=== PATIENT | male | born 1945 | race Caucasian/White ===

== ENCOUNTER 2019-03-06 07:18 | Day surgery (SDC) | payer MEDICARE ==
[~2019-03-06] VITALS: Ht 185.4 cm; Wt 113.6 kg
[2019-03-06 08:35] VITALS: BP 143/87
== END 2019-03-06 16:51 | disposition home or self-care (01) ==
LOC: CACL 07:18
PROVIDERS: ATTEND Internal Medicine Cardiovascular Disease
DX: I25.10 Atherosclerotic heart disease of native coronary artery without angina pectoris (principal); I35.0 Nonrheumatic aortic (valve) stenosis; I10 Essential (primary) hypertension; E11.9 Type 2 diabetes mellitus without complications; E78.00 Pure hypercholesterolemia, unspecified; J44.9 Chronic obstructive pulmonary disease, unspecified; E66.9 Obesity, unspecified; F17.210 Nicotine dependence, cigarettes, uncomplicated; Z68.33 Body mass index [BMI] 33.0-33.9, adult; Z79.899 Other long term (current) drug therapy; Z88.8 Allergy status to other drugs, medicaments and biological substances; Z82.49 Family history of ischemic heart disease and other diseases of the circulatory system
CPT/HCPCS: 36415; 80053; 85025; 93308; 93321; 93325; 93454; 93571; 99156; 99157; C1769; C1887; C1894; J1200; J2250; J3010; Q9967; J0583

== ENCOUNTER 2019-03-13 11:04 | Outpatient (CLI) | payer MEDICARE | END 2019-03-13 23:59 | disposition home or self-care (01) | LOC: RAD 11:04 | PROVIDERS: ATTEND Internal Medicine Cardiovascular Disease | DX: I35.8 Other nonrheumatic aortic valve disorders (principal); I65.23 Occlusion and stenosis of bilateral carotid arteries; I25.10 Atherosclerotic heart disease of native coronary artery without angina pectoris; E11.9 Type 2 diabetes mellitus without complications; I10 Essential (primary) hypertension; E78.00 Pure hypercholesterolemia, unspecified; N28.1 Cyst of kidney, acquired; M47.894 Other spondylosis, thoracic region | CPT/HCPCS: 71275; 74174; 93880; 94060; 94726; 94729; Q9967 ==

== ENCOUNTER 2019-03-21 09:33 | Inpatient (IN) | payer MEDICARE ==
[~2019-03-21] VITALS: Ht 185.4 cm; Wt 116.2 kg
[~2019-03-21 09:33] MED LIST: ALBU90AE INH; AMLO-150 PO; ASCO10004 PO; CLOT45CR5 TP; CYAN100028 PO; DEXT30DR5 EACHEYE; DICL100G19 TP; DOCU-180 PO; EYE MEDICATION EACHEYE; GABA300C10 PO; GINK40CA5 PO; GLUC1CAP48 PO; HYDR-826 PO; LOVA40TA2 PO; METO25TA35 PO; NICO-487 TD; NYST1000 PO; OMEP-110 PO; OXYC5CAP2 PO; TRAZ-137 PO
[2019-03-21] MEDS ORDERED: SODIUM CHLORIDE 0.9% 1,000 ML IV ONE (09:56)
[2019-03-21] MEDS ORDERED: ONDANSETRON 2MG/ML, 2ML IVPush PRN (10:00)
[2019-03-21] MEDS ORDERED: CHLORHEXIDINE 15 ML UDC MM PRN (10:00)
[2019-03-21 10:03] VITALS: BP 134/65
[2019-03-21 10:25] LABS: BASOPHILS # (AUTO) 0.04 x10^3/uL (0-0.1); BASOPHILS % (AUTO) 1 % (0-1); EOSINOPHILS # (AUTO) 0.12 x10^3/uL (0-0.4); EOSINOPHILS % (AUTO) 2 % (1-7); LYMPHOCYTES # (AUTO) 1.73 x10^3/uL (1-3.4); LYMPHOCYTES % (AUTO) 24 % (22-44); MD NO; MEAN CORPUSCULAR HEMOGLOBIN 30.8 pg (27.5-34.5); MEAN CORPUSCULAR HGB CONC 33.4 g/dL (33.2-36.2); MEAN CORPUSCULAR VOLUME 92.4 fL (81-97); MEAN PLATELET VOLUME 7.8 fL (7.4-10.4); MONOCYTES # (AUTO) 0.49 x10^3/uL (0.2-0.8); MONOCYTES % (AUTO) 7 % (2-9); NEUTROPHILS % (AUTO) 68 % (42-75); PLATELET COUNT 249 x10^3/uL (130-400); RED BLOOD COUNT 5.01 x10^6/uL (4.38-5.82)
[2019-03-21 10:35] LABS: INTERNATIONAL NORMALIZED RATIO 1.02 (0.93-1.1); PROTHROMBIN TIME 10.7 Seconds (9.6-11.5)
[2019-03-21 10:36] LABS: ALANINE AMINOTRANSFERASE 26 U/L (12-78); ALBUMIN 3.7 g/dL (3.4-5.0); ANION GAP 5 mmol/L (5-15); CALCIUM 9.3 mg/dL (8.5-10.1); CHLORIDE 109 mmol/L (98-107); CREATININE 0.97 mg/dL (0.7-1.3)
[2019-03-21 10:40] LABS: ALKALINE PHOSPHATASE 88 U/L (45-117); BILIRUBIN,TOTAL 0.6 mg/dL (0.2-1.0); TOTAL PROTEIN 6.7 g/dL (6.4-8.2)
[2019-03-21] MEDS ORDERED: NICO4LOZ PO (11:18)
[2019-03-21] MEDS ORDERED: DULO60CA7 PO (11:18)
[2019-03-21] MEDS ORDERED: FLUT9.9S INH (11:18)
[2019-03-21] MEDS ORDERED: SUCCINYLCHOLINE 20 MG/ML, 10ML ONE (11:19)
[2019-03-21] MEDS ORDERED: CEFAZOLIN 1,000 MG ONE (11:19)
[2019-03-21] MEDS ORDERED: FENTANYL PF 250 MCG/5ML ONE (12:27)
[2019-03-21] MEDS ORDERED: HEPARIN 1,000 UNITS/ML, 10ML ONE (12:27)
[2019-03-21] MEDS ORDERED: ROCURONIUM 10MG/ML,5ML ONE (13:43)
[2019-03-21] MEDS ORDERED: PROTAMINE SULFATE 10 MG/ML, 25ML ONE (13:43)
[2019-03-21] MEDS ORDERED: PROPOFOL 10 MG/ML, 20ML ONE (13:43)
[2019-03-21] MEDS ORDERED: CLOPIDOGREL 300 MG TABLET PO ONE (14:00)
[2019-03-21] MEDS ORDERED: ALBUTEROL SULFATE 2.5 MG/3 ML NPPB PRN ×2 (14:00→17:00)
[2019-03-21] MEDS ORDERED: OXYcodone IR 5MG TABLET PO PRN (14:00)
[2019-03-21] MEDS ORDERED: ACETAMINOPHEN 325 MG TABLET PO PRN (14:00)
[2019-03-21] MEDS: NICOTINE POLACRILEX 4 MG PO SCH ×4 (17:03→23:19)
[2019-03-21 17:46] VITALS: BP 139/50
[2019-03-21 19:24] VITALS: BP 153/61
[2019-03-21] MEDS: METOPROLOL TARTRATE 25 MG TABLET PO SCH (20:06)
[2019-03-21] MEDS: GABAPENTIN 300 MG CAPSULE PO SCH (20:07)
[2019-03-21] MEDS: DICLOFENAC SODIUM TP SCH (20:07)
[2019-03-21] MEDS: HYDROcodone/APAP 5/325 TABLET PO PRN (20:11)
[2019-03-21] MEDS ORDERED: LOVASTATIN 40 MG TABLET PO SCH (21:00)
[2019-03-21] MEDS ORDERED: TRAZODONE 100MG TABLET PO SCH (21:00)
[2019-03-21] MEDS ORDERED: TEMPLATE NON-FORMULARY MED. (Gluc 2KCL/Chondr/Coll Hy/Hy Ac** (Glucosamine & Chondroitin C PO SCH (21:00)
[2019-03-22 01:04] VITALS: BP 142/74
[2019-03-22] MEDS: NICOTINE POLACRILEX 4 MG PO SCH ×5 (02:50→08:31)
[2019-03-22 05:20] LABS: MEAN CORPUSCULAR HEMOGLOBIN 31.8 pg (27.5-34.5); MEAN CORPUSCULAR HGB CONC 33.7 g/dL (33.2-36.2); MEAN CORPUSCULAR VOLUME 94.4 fL (81-97); MEAN PLATELET VOLUME 8.3 fL (7.4-10.4); PLATELET COUNT 242 x10^3/uL (130-400); RED BLOOD COUNT 4.63 x10^6/uL (4.38-5.82); RED CELL DISTRIBUTION WIDTH 14.2 % (9.4-14.8)
[2019-03-22 05:30] LABS: ANION GAP 8 mmol/L (5-15); CALCIUM 8.9 mg/dL (8.5-10.1); CHLORIDE 106 mmol/L (98-107)
[2019-03-22 05:54] LABS: BASOPHILS # (AUTO) 0.03 x10^3/uL (0-0.1); BASOPHILS % (AUTO) 0 % (0-1); EOSINOPHILS # (AUTO) 0.19 x10^3/uL (0-0.4); EOSINOPHILS % (AUTO) 1 % (1-7); LYMPHOCYTES # (AUTO) 1.32 x10^3/uL (1-3.4); LYMPHOCYTES % (AUTO) 9 % (22-44); MD SCAN; MONOCYTES # (AUTO) 0.77 x10^3/uL (0.2-0.8); MONOCYTES % (AUTO) 5 % (2-9); NEUTROPHILS # (AUTO) 11.85 x10^3/uL (1.8-6.8); NEUTROPHILS % (AUTO) 84 % (42-75)
[2019-03-22] MEDS: HYDROcodone/APAP 5/325 TABLET PO PRN ×2 (06:08→10:02)
[2019-03-22 07:20] VITALS: BP 128/87
[2019-03-22] MEDS ORDERED: CLOPIDOGREL 75 MG TABLET PO SCH (09:00)
[2019-03-22] MEDS ORDERED: ASPIRIN 81 MG TABLET EC PO SCH (09:00)
[2019-03-22] MEDS ORDERED: FLUTICASONE NASAL SPRAY 16GM NAS SCH (09:00)
[2019-03-22] MEDS ORDERED: GINKGO BILOBA 40 MG PO SCH (09:00)
[2019-03-22] MEDS ORDERED: OMEPRAZOLE 20 MG CAPSULE.DR PO SCH (09:00)
[2019-03-22] MEDS ORDERED: DOCUSATE 100 MG CAPSULE PO SCH (09:00)
[2019-03-22] MEDS: DICLOFENAC SODIUM TP SCH (09:00)
[2019-03-22] MEDS ORDERED: DULOXETINE 30 MG CAPSULE.DR PO SCH (09:00)
[2019-03-22] MEDS ORDERED: AMLODIPINE 5 MG TABLET PO SCH (09:00)
[2019-03-22] MEDS: METOPROLOL TARTRATE 25 MG TABLET PO SCH (10:02)
[2019-03-22] MEDS: GABAPENTIN 300 MG CAPSULE PO SCH (10:03)
[2019-03-22] MEDS ORDERED: CLOP75TA PO (11:40)
[2019-03-22] MEDS ORDERED: ASPI81TA45 PO (11:40)
== END 2019-03-22 14:46 | disposition home or self-care (01) | DRG 266 ==
LOC: ORIP 09:33 → CCU 13:46 → 5SO 17:44 → DCLOUNGE 03-22 14:12
PROVIDERS: ADMIT Internal Medicine Cardiovascular Disease; ATTEND Internal Medicine Cardiovascular Disease
PROC: B246ZZ4 Ultrasonography of Right and Left Heart, Transesophageal (ICD-10-PCS; 2019-03-21)
PROC: 03HY32Z Insertion of Monitoring Device into Upper Artery, Percutaneous Approach (ICD-10-PCS; 2019-03-21)
PROC: 02RF38Z Replacement of Aortic Valve with Zooplastic Tissue, Percutaneous Approach (ICD-10-PCS; principal; 2019-03-21 13:30)
DX: I35.0 Nonrheumatic aortic (valve) stenosis (principal); I50.33 Acute on chronic diastolic (congestive) heart failure; D72.829 Elevated white blood cell count, unspecified; E11.9 Type 2 diabetes mellitus without complications; E66.9 Obesity, unspecified; E78.5 Hyperlipidemia, unspecified; I11.0 Hypertensive heart disease with heart failure; I25.10 Atherosclerotic heart disease of native coronary artery without angina pectoris; J44.9 Chronic obstructive pulmonary disease, unspecified; Z00.6 Encounter for examination for normal comparison and control in clinical research program; Z68.33 Body mass index [BMI] 33.0-33.9, adult
CPT/HCPCS: 0399T; 33361; 36415; 80048; 80053; 83880; 85025; 85347; 85610; 85730; 86850; 86900; 86923; 87081; 93005; 93306; 93312; 93321; 93325; 93355; 94640; C1760; C1769; C1894; G0378; J0690; J1644; J2704; J2720; J3010; J7613; J0330; J7030; Q9967

== ENCOUNTER → 2020-03-11 | Outpatient (CLI) | payer MEDICARE ==
[~2020-03-11] MED LIST changes: +ASPI81TA45 PO; +CLOP75TA PO; +DULO60CA7 PO; +FLUT9.9S INH; +NICO4LOZ PO; -TRAZ-137 PO; +TRAZ-175 PO
== END | disposition home or self-care (01) ==
LOC: CVU 11:57
PROVIDERS: ATTEND Internal Medicine Cardiovascular Disease
DX: I11.9 Hypertensive heart disease without heart failure (principal); I65.29 Occlusion and stenosis of unspecified carotid artery; E78.5 Hyperlipidemia, unspecified; E11.9 Type 2 diabetes mellitus without complications; Z95.4 Presence of other heart-valve replacement
CPT/HCPCS: 93306

== ENCOUNTER → 2021-03-24 | Outpatient (CLI) | payer MEDICARE ==
[~2021-03-24] MED LIST changes: +ASCO100018 PO; -ASCO10004 PO; +CLOT45CR23 TP; -CLOT45CR5 TP; -DOCU-180 PO; +DOCU-192 PO; -NICO-487 TD; +NICO-587 TD
== END | disposition home or self-care (01) ==
LOC: CVU 09:51
PROVIDERS: ATTEND Internal Medicine Cardiovascular Disease
DX: I11.9 Hypertensive heart disease without heart failure (principal); E11.9 Type 2 diabetes mellitus without complications; E78.5 Hyperlipidemia, unspecified; Z95.2 Presence of prosthetic heart valve
CPT/HCPCS: 93306